=== PATIENT | female | born 1985 | race Two or more races ===

== ENCOUNTER 2018-01-07 09:43 | Day surgery (SDC) | payer OTHER ==
[2018-01-06 13:38] VITALS: BMI 22.4
[2018-01-07] MEDS ORDERED: LIDOCAINE HCL/PF 2% SDV 5ML VIAL ONE (11:55)
[2018-01-07] MEDS ORDERED: PROPOFOL 20 ML ONE ×2 (11:55)
[2018-01-07] MEDS ORDERED: ceFAZolin SODIUM 1 GM VIAL ONE (11:55)
[2018-01-07] MEDS ORDERED: MIDAZOLAM HCL 2 MG/2 ML SINGLE DOSE VIAL ONE ×2 (11:56)
[2018-01-07] MEDS ORDERED: DEXAMETHASONE SOD PHOSPHATE 4 MG/1 ML VIAL ONE (12:12)
[2018-01-07] MEDS ORDERED: oxyCODONE HCL 5 MG TABLET PO PRN (12:24)
[2018-01-07] MEDS ORDERED: ACETAMINOPHEN 500 MG TABLET (FP) PO PRN (12:24)
[2018-01-07] MEDS ORDERED: ONDANSETRON 4 MG/2 ML VIAL IVPUSH PRN (12:24)
[2018-01-07] MEDS ORDERED: LACTATED RINGERS SOLUTION 1,000 ML IV SCH (12:30)
[2018-01-07] MEDS ORDERED: ceFAZolin SODIUM 1 GM VIAL IVPB ONE (12:43)
[2018-01-07] MEDS ORDERED: KETOROLAC TROMETHAMINE 30 MG/1 ML VIAL ONE (12:54)
[2018-01-07] MEDS ORDERED: DEXAMETHASONE SOD PHOSPHATE 4 MG/1 ML VIAL NR ONE ×2 (13:07→13:43)
[2018-01-07] MEDS ORDERED: BUPIVACAINE HCL/PF 0.5% (5MG/ML) 10 ML VIAL IJ ONE ×2 (13:07→13:43)
[2018-01-07 14:45] VITALS: TEMP 97.9
[2018-01-07 15:32] VITALS: BP 111/56; PULSE 72
--- NOTE | 2018-01-11 16:21 | PATH ---
Surgical Pathology Report Patient Name: [facility]. Rec. #: [id number] /Age/Gender: 1985 (Age: 32) / F Account: [id number] Location: [facility] SURGICAL Taken: 01/07/2018 Received: 01/10/2018 Reported: 01/11/2018 Physicians: Sonia Gallagher DPM Specimen(s) Received BONE LEFT 5TH TOE AND LEFT 1ST TOE BUNIECTOMY 5TH TOE BUNIECTOMY Clinical History Bunion and hammertoe fifth/first digit left foot Final Diagnosis BONE, FIRST AND FIFTH TOE, LEFT, BUNIONECTOMY: FRAGMENTS OF BONE WITH DEGENERATIVE CHANGES. Electronically Signed Justina Pastrana M.D. Gross Description Received in formalin labeled "fifth toe bunionectomy, bone left fifth toe and left first toe bunionectomy," is a 2.8 x 2.0 x 0.2 cm aggregate of tariq bone and soft tissue fragments. Credit Collection Specialist sections are submitted in one cassette, following decalcification. 01/10/[address] [facility]2018
--- NOTE | 2018-01-16 15:54 | OP ---
DATE OF OPERATION: 01/07/2018 SURGEON: Sonia Gallagher DPM; Keegan John DPM [employer] MACHIN[employer] HELPER: Jerome, PGY-2 PREOPERATIVE DIAGNOSES: Painful left foot bunion and painful left foot tailor's bunion and painful left foot 5th hammertoe. POSTOPERATIVE DIAGNOSES: Painful left foot bunion and painful left foot tailor's bunion and painful left foot 5th hammertoe. PROCEDURE: Left foot Silver bunionectomy and left foot tailor's bunionectomy of the 5th, and left foot 5th toe arthroplasty. ANESTHESIA: Local with MAC. PATHOLOGY: Left foot bone and soft tissue. ESTIMATED BLOOD LOSS: Minimal. HEMOSTASIS: Left ankle tourniquet at 250 mmHg and electrocautery. MATERIALS USED: 2-0, 3-0, and 4-0 Vicryl sutures, 4-0 nylon suture; Betadine-soaked Adaptic, dry sterile dressing and Coban. INJECTABLES: 22 mL of a 1:1 mixture of 1% lidocaine plain and 0.5% Marcaine plain was used preoperatively, and 10 mL of a 7:3 mixture of 0.5% Marcaine plain and 4 mg dexamethasone used postoperatively. CONDITION OF THE PATIENT: Stable. DESCRIPTION: The patient was brought to the operating room and placed on the operating table in the supine position. A pneumatic ankle tourniquet was then placed on the patient's left ankle. Following IV sedation, local anesthesia was obtained using the 1:1 mixture of 1% lidocaine plain and 0.5% Marcaine plain preoperatively, 20 mL total was injected of throughout the surgical site. The left foot was then scrubbed, prepped, and draped in the usual aseptic manner. An Esmarch bandage was then utilized to exsanguinate the patient's left foot and the tourniquet was inflated. Attention was first directed to the dorsal aspect of the 1st metatarsal head of the left foot, where a linear incision was made medial and parallel to the tendon of the extensor hallucis longus. The incision was then deepened through the subcutaneous tissue using sharp and blunt dissection. Care was taken to identify all vital neural and vascular structures. All bleeders were then ligated and cauterized as necessary. At this time, a linear capsulotomy was performed over the dorsal aspect of the 1st metatarsophalangeal joint. The periosteal and capsular structures were carefully dissected medially and laterally, exposing the head of the 1st metatarsal. Attention was then directed to the 1st interspace. Using number 15 blade, the conjoined tendon was transected as well as the fibular sesamoid ligament. It appeared the lateral deviation present in the hallux was then significantly reduced. Attention was then directed to the medial aspect of the 1st metatarsal head. Using a sagittal saw, the medial prominence was then resected and passed from the operative field and sent to Pathology. The remaining rough edges of the 1st metatarsal head dorsally and medially were then resected using a power bur, and the bunion deformity was noted to be vastly improved. The wound was then irrigated with copious amount of normal saline, and capsular structures closed using 2-0 Vicryl suture and the subcutaneous tissue was closed using 3-0 and 4-0 Vicryl sutures. Using Mastisol and Steri-Strips, the skin was reapproximated. Postoperative injection of a 7:3 ratio, total of 10 mL, a mixture of 0.5% Marcaine plain and dexamethasone 4 mg was injected throughout the surgical site and a postoperative dressing was applied to the right foot, such as Betadine-soaked Adaptic and dry sterile dressing such as 4 x 4 sterile gauze and Coban. The tourniquet was then deflated, and immediate hyperemia returned to all the digits. Next, attention was brought to the lateral aspect of the 5th metatarsal, where a linear incision was made on the dorsal aspect of the 1st metatarsal head and lateral to the extensor tendon. Care was taken to identify all neural and vascular structures. All bleeders were then ligated and cauterized as necessary. At this time, a linear capsulotomy was then performed over the dorsal aspect of the 5th metatarsophalangeal joint. The periosteal and capsular structures were carefully dissected medially and laterally, exposing the head of the 5th metatarsal. Attention was then directed to the lateral aspect, where the lateral eminence of the 5th metatarsal was resected using a sagittal saw, and all the edges were smoothened using power bur. The wound was then irrigated with copious amount normal saline. The capsule was closed using 3-0 Vicryl suture and subcutaneous tissue was closed using 3-0 and 4-0 and 2-0 Vicryl sutures and Mastisol and Steri-Strips applied to the surgical site. Next, attention was brought to the dorsal aspect of the 5th digit. Using a number 15, a semi-elliptical incision in an angulated manner was made over the dorsal aspect of the 5th digit at the proximal interphalangeal joint. The skin wedge was resected and sent to Pathology. Using a number 15 blade, the extensor tendon was then tenotomized at the proximal interphalangeal joint and was freed from its extensor tendon as well as lateral and lateral and medial collateral ligaments. Using a sagittal saw, the head of the proximal phalanx was resected and passed from the operative field. Position of the 5th toe appeared to be in a straight position. The wound was irrigated with copious amount of normal saline. The extensor tendon was closed using 3-0 Vicryl suture and skin was closed using 4-0 nylon suture. Postoperative injection of total of 10 mL of a 7:3 mixture of 0.5% Marcaine plain and 4 mg dexamethasone was injected throughout the surgical site of the left foot, and postoperative dressing such as Betadine-soaked Adaptic and 4 x 4 gauze, Zander, and Coban applied to the left foot. At this time, the tourniquet was deflated and immediate hyperemia was noted to all the digits of the left foot. The patient tolerated the procedure and anesthesia well and was transferred to the recovery room with all vital signs stable and vascular status intact to the left lower extremity. Following postoperative monitoring, the patient will be discharged and was already given instructions and prescriptions, which was discussed prior to the surgery. Jerome, dictating for PRISCA Mendoza DPM [id number]
== END 2018-01-07 15:37 | disposition home or self-care (01) ==
LOC: JASU-SURG 09:43
PROVIDERS: ATTEND Podiatrist Foot Surgery
PROC: 0QSP04Z Reposition Left Metatarsal with Internal Fixation Device, Open Approach (ICD-10-PCS; 2018-01-07)
PROC: 0QSP04Z Reposition Left Metatarsal with Internal Fixation Device, Open Approach (ICD-10-PCS; 2018-01-07)
PROC: 0SNQ0ZZ Release Left Toe Phalangeal Joint, Open Approach (ICD-10-PCS; principal; 2018-01-07 11:00)
PROC: 0QBP0ZZ Excision of Left Metatarsal, Open Approach (ICD-10-PCS; 2018-01-07 11:00)
DX: M21.612 Bunion of left foot (principal); M21.622 Bunionette of left foot; M20.42 Other hammer toe(s) (acquired), left foot
CPT/HCPCS: 73630-TC-LT; 84703; 88304-TC; 88311-TC; 94760

== ENCOUNTER 2022-09-11 04:36 | Day surgery (SDC) | payer BC ==
[2022-09-10 12:36] VITALS: BMI 21.4
[2022-09-11] MEDS ORDERED: VANCOMYCIN 1,000 MG VIAL (RESTRICTED TO ID ONLY) ONE (10:46)
[2022-09-11] MEDS ORDERED: DEXAMETHASONE SOD PHOSPHATE 4 MG/1 ML VIAL ONE (10:47)
[2022-09-11] MEDS ORDERED: LIDOCAINE HCL 1%, 10 MG/ML (20ML VIAL) ONE (10:47)
[2022-09-11] MEDS ORDERED: FENTANYL CITRATE/PF 50 MCG/ML VIAL ONE ×2 (11:00→11:20)
[2022-09-11] MEDS ORDERED: MIDAZOLAM HCL 2 MG/2 ML SINGLE DOSE VIAL ONE (11:00)
[2022-09-11] MEDS ORDERED: PROPOFOL 20 ML ONE (11:00)
[2022-09-11] MEDS ORDERED: ceFAZolin SODIUM 1 GM VIAL ONE (11:20)
[2022-09-11] MEDS ORDERED: ceFAZolin 2 GRAM PREMIX BAG IVPB ONE (11:20)
[2022-09-11] MEDS ORDERED: BUPIVACAINE HCL/PF 0.5% (5MG/ML) 10 ML VIAL PNB ONE ×2 (11:31)
[2022-09-11] MEDS ORDERED: DEXAMETHASONE SOD PHOSPHATE 4 MG/1 ML VIAL IVPUSH ONE (11:31)
[2022-09-11] MEDS ORDERED: LIDOCAINE HCL 1%, 10 MG/ML (20ML VIAL) PNB ONE (11:31)
[2022-09-11] MEDS ORDERED: KETOROLAC TROMETHAMINE 30 MG/1 ML VIAL ONE (11:45)
[2022-09-11 12:53] VITALS: RESP 20; TEMP 98.2
[2022-09-11 12:55] VITALS: BP 109/81; PULSE 70
== END 2022-09-11 12:47 | disposition home or self-care (01) ==
LOC: JASU-SURG 04:36
PROVIDERS: ATTEND Podiatrist Foot Surgery
PROC: 0SRQ0JZ Replacement of Left Toe Phalangeal Joint with Synthetic Substitute, Open Approach (ICD-10-PCS; principal; 2022-09-11 11:00)
DX: M20.42 Other hammer toe(s) (acquired), left foot (principal)
CPT/HCPCS: 73630-TC-LT; 81025; 88305-TC; 88311-TC; C9803-CS; U0003; U0005